=== PATIENT | female | born 1940 | race Caucasian/White ===

== ENCOUNTER 2017-10-04 15:46 | Emergency (ER) | payer OTHER ==
--- NOTE | 2017-10-04 16:11 | PDOC ---
Rapid Medical Evaluation Time Seen by Provider: 10/04/17 16:04 Medical Evaluation: 10/04/17 16:04 I have performed a brief in-person evaluation of this patient. The patient presents with a chief complaint of: L wrist pain and facial abrasion s/p mechanical fall today. No LOC, rice, dizziness, n/v. Not on blood thinners. No hip/neck/pain. Ambulatory in triage. No CP or dizziness prior to fall Pertinent physical exam findings:facial abrasion to L side of face, LUE w/ some swelling over dorsal aspect of distal L forearm I have ordered the following:CTH and xray The patient will proceed to the ED for further evaluation Discharge Disposition - Diagnosis Fall Qualifiers: Encounter type: initial encounter Qualified Code(s): W19.XXXA - Unspecified fall, initial encounter - Referrals - Patient Instructions - Post Discharge Activity
[2017-10-04 16:15] VITALS: BP 118/57; PULSE 86; TEMP 97.8; BMI 26.2
[2017-10-04] MEDS ORDERED: DIPHTH,PERTUSS(ACELL),TET 0.5 ML DISP.SYRIN IM ONE (16:40)
--- NOTE | 2017-10-04 16:40 | PDOC ---
History of Present Illness - General Chief Complaint: Bone Injury Stated Complaint: FALL, INJURY Time Seen by Provider: 10/04/17 16:04 History Source: Patient Exam Limitations: No Limitations - History of Present Illness Initial Comments: 10/04/17 16:35 76 yr female tripped and fell this am injured left wrist and left side face. no LOC no dizzyness. Occurred: reports: this morning Severity: reports: mild Pain Location: reports: upper extremity (left wrist) Method of Injury: Yes: fall Past History - Past Medical History Allergies/Adverse Reactions: Allergies Allergy/AdvReac Type Severity Reaction Status Date / Time No Known Allergies Allergy Verified 10/04/17 16:47 Home Medications: Ambulatory Orders Metoprolol Succinate 25 mg PO ASDIR 10/04/17 COPD: No HTN: Yes - Suicide/Smoking/Psychosocial Hx Smoking History: Former smoker Have you smoked in the past 12 months: No If you are a former smoker, when did you quit?: 8 years ago Information on smoking cessation initiated: No Hx Alcohol Use: No Drug/Substance Use Hx: No Review of Systems - Review of Systems Able to Perform ROS?: Yes Is the patient limited Bur[place]ian proficient: No Constitutional: No: Symptoms Reported HEENTM: No: Symptoms Reported Respiratory: No: Symptoms reported Cardiac (ROS): No: Symptoms Reported ABD/GI: No: Symptoms Reported Musculoskeletal: Yes: Symptoms Reported *Physical Exam - Vital Signs Last Vital Signs Temp Pulse Resp BP Pulse Ox 97.8 F 86 16 118/57 96 10/04/17 16:07 10/04/17 16:07 10/04/17 16:07 10/04/17 16:07 10/04/17 16:07 - Physical Exam General Appearance: Yes: Nourished, Appropriately Dressed HEENT: positive: EOMI, CONY, TMs Normal, Pharynx Normal Neck: positive: Supple. negative: Lymphadenopathy (R), Lymphadenopathy (L), Tender lateral Respiratory/Chest: positive: Lungs Clear, Normal Breath Sounds. negative: Chest Tender, Stridor, Wheezing Cardiovascular: positive: Regular Rhythm, Regular Rate Extremity: positive: Normal Capillary Refill, Normal Inspection, Tender, Swelling (left wrist stronf radial pulse limited ROM ) Integumentary: positive: Normal Color, Dry, Warm, Bruising, Other (abrasions left cheek, left upper eyeborw ) Procedures - Splinting Hand-Made Type: orthoglass (left wirst volar/dorsal splint placed above elbow) Medical Decision Making - Medical Decision Making 10/04/17 16:49 cc: mechanical fall on tree root on sidewalk this am no loc pt has applied ice to the left side of face cleaned with peroxide and appied bacitracin at home pt has pain 7/10 to the left wrist with minimal movement xrays done, head ct ordered, 10/04/17 18:08 ct done is negative dc inst given to pt who understands the plan of care all questions asked and answered. *DC/Admit/Observation/Transfer Diagnosis at time of Disposition: Abrasion, face w/o infection Fall Qualifiers: Encounter type: initial encounter Qualified Code(s): W19.XXXA - Unspecified fall, initial encounter Wrist fracture, left Qualifiers: Encounter type: initial encounter Fracture type: closed Qualified Code(s): S62.102A - Fracture of unspecified carpal bone, left wrist, initial encounter for closed fracture - Discharge Dispostion Disposition: HOME Condition at time of disposition: Good - Referrals Referrals: Ubaldo Fernandes MD [Staff Physician] - - Patient Instructions Additional Instructions: call 's office on Saturday for appointment next week do not remove the splint or get it wet use the sling while awake remove to sleep and bathe take tylenol 650mg every 4-6hrs for pain follow with your primary care doctor on SATURDAY - Post Discharge Activity
== END 2017-10-04 18:11 | disposition home or self-care (01) ==
LOC: JERFT 15:46
PROC: 2W3DX1Z Immobilization of Left Lower Arm using Splint (ICD-10-PCS; principal; 2017-10-04)
DX: S52.592A Other fractures of lower end of left radius, initial encounter for closed fracture (principal); S00.31XA Abrasion of nose, initial encounter; W18.39XA Other fall on same level, initial encounter; Y93.01 Activity, walking, marching and hiking; Y92.480 Sidewalk as the place of occurrence of the external cause; Y99.8 Other external cause status; I10 Essential (primary) hypertension
CPT/HCPCS: 29125; 70450-TC; 73090-TC-LT-FY; 73110-TC-LR-FY; 73130-TC-LR-FY; 90715; 99282-25

== ENCOUNTER 2018-12-04 11:47 | Observation (INO) | payer OTHER ==
[2018-12-04 11:53] VITALS: BMI 24.8
--- NOTE | 2018-12-04 12:03 | PDOC ---
History of Present Illness - General Chief Complaint: Shortness of Breath Stated Complaint: ASTHMA Time Seen by Provider: 12/04/18 12:00 History Source: Patient Exam Limitations: No Limitations - History of Present Illness Initial Comments: Sonia Taveras is an 78 yo F w a hx of COPD, HTN, HCL, and childhood asthma who presents to the ER with shortness of breath which has been worsening over the past month. The patient states it came to a point where she cannot breathe at rest. She has been experiencing significant dyspnea with exertion over the course of the past month. Whenever she walks one block she becomes short of breath and also has chest pain. She states she has been requiring an extra pillow to sleep with lately. Patient endorses a dry cough over the past week as well. The patient denies currently experiencing any chest pain. Her only complaint at the present time is difficulty breathing. Denies recent fevers, chills, infections. Denies ankle/leg swelling. Denies having a hx of heart failure. Denies nausea vomiting, diaphoresis. Denies current chest pain. Denies abdominal or back pain. PCP: Yeison Chu PSH: None reported Social Hx: [place] smoker. Denies current smoking, drinking, or substance abuse Allergies: NKDA, NKA Past History - Past Medical History Allergies/Adverse Reactions: Allergies Allergy/AdvReac Type Severity Reaction Status Date / Time No Known Allergies Allergy Verified 12/04/18 15:02 Home Medications: Ambulatory Orders Albuterol Sulfate [Proair Hfa] 8.5 gm IH Q6H PRN #1 hfa.aer.ad 12/04/18 Amlodipine Besylate [Norvasc -] 5 mg PO DAILY 12/04/18 Enalapril Maleate [Vasotec] 20 mg PO DAILY 12/04/18 Fluticasone/Vilanterol [Breo Ellipta 100-25 Mcg INH] 1 each IH DAILY #1 blst.w.dev 12/04/18 Metoprolol Succinate [Toprol Xl] 50 mg PO DAILY 12/04/18 Pravastatin Sodium 20 mg PO HS 12/04/18 Prednisone See Taper PO DAILY #20 tablet 12/04/18 Cancer: Yes COPD: No HTN: Yes - Immunization History Immunization Up to Date: Yes - Psycho Social/Smoking Cessation Hx Smoking History: Former smoker Have you smoked in the past 12 months: No If you are a former smoker, when did you quit?: 8 years ago Information on smoking cessation initiated: No Hx Alcohol Use: No Drug/Substance Use Hx: No Review of Systems - Review of Systems Able to Perform ROS?: Yes Comments:: CONSTITUTIONAL: Present: weakness, malaise Absent: fever, chills, diaphoresis, loss of appetite HEENT: Absent: rhinorrhea, nasal congestion, throat pain, throat swelling, difficulty swallowing, mouth swelling, ear pain, eye pain, visual Changes CARDIOVASCULAR: Present: Chest pain Absent: syncope, palpitations, irregular heart rate, lightheadedness, peripheral edema RESPIRATORY: Present: cough, shortness of breath, dyspnea with exertion, orthopnea Absent: wheezing, stridor, hemoptysis GASTROINTESTINAL: Absent: abdominal pain, abdominal distension, nausea, vomiting, diarrhea, constipation, melena, hematochezia GENITOURINARY: Absent: dysuria, frequency, urgency, hesitancy, hematuria, flank pain, genital pain MUSCULOSKELETAL: Absent: myalgia, arthralgia, joint swelling SKIN: Absent: rash, itching, pallor HEMATOLOGIC/IMMUNOLOGIC: Absent: easy bleeding, easy bruising, lymphadenopathy, frequent infections ENDOCRINE: Absent: unexplained weight gain, unexplained weight loss, heat intolerance, cold intolerance NEUROLOGIC: Absent: headache, focal weakness or paresthesias, dizziness, unsteady gait, seizure, mental status changes, bladder or bowel incontinence PSYCHIATRIC: Absent: anxiety, depression, suicidal or homicidal ideation, hallucinations. *Physical Exam - Vital Signs Last Vital Signs Temp Pulse Resp BP Pulse Ox 98.2 F 21 H 120/64 95 12/04/18 11:49 12/04/18 11:49 12/04/18 11:49 12/04/18 11:49 - Physical Exam Comments: GENERAL: Well developed, well nourished. Awake and alert. Mild distress. HEENT: Normocephalic, atraumatic. PERRLA, EOMI. No conjunctival pallor. Sclera are non- icteric. Moist mucous membranes. Oropharynx is clear. NECK: Supple. Full ROM. No JVD. No thyromegaly. No lymphadenopathy. CARDIOVASCULAR: Tachycardic rate. Regular rhythm. No murmurs, rubs, or gallops. Distal pulses are 2+ and symmetric. PULMONARY: There are bilateral crackles at the bases. No wheezing or rhonchi. ABDOMINAL: Soft. Non-tender. Non-distended. No rebound or guarding. No organomegaly. Normoactive bowel sounds. MUSCULOSKELETAL Normal range of motion at all joints. No bony deformities or tenderness. No CVA tenderness. EXTREMITIES: 1+ b/l edema. No cyanosis. No clubbing. No calf tenderness. SKIN: Warm and dry. Normal capillary refill. No rashes. No jaundice. NEUROLOGICAL: Alert, awake, appropriate. Normal speech. Gait is normal without ataxia. PSYCHIATRIC: Cooperative. Good eye contact. Appropriate mood and affect. Procedures - Bedside Ultrasound Bedside Ultrasound: Lung Other: Cardiac Remarks: Lungs: Trace B-lines in right apex. Normal A-lines in both lung henry. Normal lung sliding. No pleural effusion. Cardiac: No focal wall motion abnormalities, no pericardial effusion, normal LV/ RV ratio ED Treatment Course - LABORATORY CBC & Chemistry Diagram: 12/04/18 12:48 12/04/18 12:48 - RADIOLOGY Radiograph Interpretation: CXR: Chest: Wheezing. 2 views of the chest reveal clear lungs, sharp angles, tortuous thoracic aorta but no sign of infiltrate or failure. The angles are sharp. The bones and soft tissues are intact. There are degenerative changes with wedging. The mediastinum has a similar configuration to 05/08/2018. Correlation recommended Medical Decision Making - Medical Decision Making Sonia Taveras is an 78 yo F w a hx of COPD, HTN, HCL, and childhood asthma who presents to the ER with shortness of breath which has been worsening over the past month. The patient states it came to a point where she cannot breathe at rest. She has been experiencing significant dyspnea with exertion over the course of the past month. Whenever she walks one block she becomes short of breath and also has chest pain. She states she has been requiring an extra pillow to sleep with lately. Patient endorses a dry cough over the past week as well. The patient denies currently experiencing any chest pain. Her only complaint at the present time is difficulty breathing. VS: Patient is satting at 95% on RA - Tachycardic to 115 DDx IBNLT: COPD vs CHF, less likely asthma. ACS/MA, electrolyte/metabolic disturbance, angina Plan: Labs, urine, CXR, EKG, bedside POCUS heart, lung, admit to hospital EKG: NS rate of 89, narrow complexes, normal axis, no hypertrophy, no ST elevations or depressions, no Q waves, no abnormal TWI's Labs: Elevated BUN. Normal trop and BNP. - Hydrating w 1LNS US - Lungs: Trace B-lines on the left. Normal A-lines, no pleural effusion. Cardio: No focal wall motion abnormalities. No pericardial effusion. Normal Rv/ Lv ratio. Grossly Normal echo. CXR: Unremarkable Dispo: Admit to hospital for respiratory distress Discharge - Discharge Information Problems reviewed: Yes Clinical Impression/Diagnosis: COPD exacerbation COPD (chronic obstructive pulmonary disease) Qualifiers: COPD type: unspecified COPD Qualified Code(s): J44.9 - Chronic obstructive pulmonary disease, unspecified Condition: Stable - Admission Yes - Follow up/Referral - Patient Discharge Instructions - Post Discharge Activity
--- NOTE | 2018-12-04 12:34 | PDOC ---
Documentation entered by Maryjane Perez SCRIBE, acting as scribe for Ary Villa MD. Ary Villa MD: This documentation has been prepared by the Ana newton Adrianna, SCRIBE, under my direction and personally reviewed by me in its entirety. I confirm that the documentation accurately reflects all work, treatment, procedures, and medical decision making performed by me. Attending Attestation - Resident Resident Name: Doug Charles - ED Attending Attestation I have performed the following: I have examined & evaluated the patient, The case was reviewed & discussed with the resident, I agree w/resident's findings & plan - HPI HPI: The patient is an 78 year old female, with a significant PMH of HTN, COPD, HCL , and childhood asthma presenting with progressively worsening SOB for one month. Patient endorses dyspnea on exertion, noting she cant walk for more than one block. Patient notes she developed dyspnea at rest, prompting her visit to the ED. She reports associated dry cough and chest pain upon exertion. usually takes proair for COPD. 12/04/18 13:03 - Physicial Exam PE: Agree with the resident's HPI and PE as documented in the electronic medical record. NAD, well appearing, EOMI, PERRL, nl conjunctiva, anicteric; no jvd. neck supple. mildly tachypneic in 20s, +basilar crackles, diminished breath sounds throughout. tachycardic, no murmurs, abdomen soft nontender. Back nontender. CALERO x4, no focal neuro deficits. No peripheral edema. normal color for ethnicity , no calf tenderness. WWP. 12/04/18 13:02 - Medical Decision Making 12/04/18 12:32 See HPI for details. Prior notes reviewed, including admissions, discharges and consultations. Vital signs reviewed, wnl. Vital Signs Temp Pulse Resp BP Pulse Ox 98.2 F 21 H 120/64 95 12/04/18 11:49 12/04/18 11:49 12/04/18 11:49 12/04/18 11:49 DDx SOB: ACS, PE, PTX, CHF, COPD exac, pulmonary edema, pleurisy, pneumonia, viral syndrome. effusion. anemia, electrolyte/metabolic derangements. POCUS thoracic exam with primarily A line profile b/l, left focal B lines in the apex, unclear etiology, but not diffuse; no pleural effusions noted. suggestive of more copd exacerbation. laboratory results and imaging reviewed, basic labs and lytes wnl, CXR_copd lungs, no infiltrate/edema/effusion or opacity Cardiac panel_neg, reassuring, doubt cardiac. EKG normal sinus rhythm at 89 bpm, no interval abnormalities, narrow QRS, ST and T wave segments and morphology normal. ED course -interventions: duonebs x3, solumedrol, reassess Admit for COPD exacerbation.. Discussed results and management plan with pt and family member at bedside, agree with impression, treatment indications, recommendations and plan. hospitalist service for admission. 12/04/18 13:03 12/04/18 13:35 Heart Score/ECG Review #1 ECG reviewed & interpreted by me at: 11:55 General ECG Interpretation: Sinus Rhythm, Normal Rate, Normal Intervals Compared to previous ECG there are: Previous ECG unavail 12/04/18 12:34 EKG normal sinus rhythm at 89 bpm, no interval abnormalities, narrow QRS, ST and T wave segments and morphology normal.
[2018-12-04 13:00] LABS: BASO % 0.5 % (0-2.0); EOS % 2.9 % (0-4.5); HEMOGLOBIN 13.3 GM/dL (10.7-15.3); LYMPH % 14.8 % (8-40); MCHC 32.5 g/dl (32.0-36.0); MEAN PLT VOLUME 7.4 fl (7.5-11.1); MONO % 13.4 % (3.8-10.2); NEUT % 68.4 % (42.8-82.8); PLATELET COUNT 280 K/MM3 (134-434); RBC 4.76 M/mm3 (3.60-5.2); RDW 14.1 % (11.6-15.6); WHITE BLOOD COUNT 6.8 K/mm3 (4.0-10.0)
[2018-12-04 13:03] LABS: VENOUS PC02 39.2 mmHg (38-52); VENOUS PH 7.38 (7.31-7.41)
[2018-12-04 13:04] LABS: VENOUS PO2 < 49 mmHg (28-48)
[2018-12-04] MEDS ORDERED: methylPREDNISolone NA SUCC 125 MG/2 ML VIAL IVPUSH ONE (13:05)
[2018-12-04 13:15] LABS: INR 1.19 (0.83-1.09); PROTHROMBIN TIME (PATIENT) 14.1 SEC (9.7-13.0)
[2018-12-04 13:28] LABS: ALBUMIN 3.2 g/dl (3.4-5.0); BILIRUBIN,TOTAL 0.6 mg/dL (0.2-1); BLOOD UREA NITROGEN 22.9 mg/dL (7-18); CALCIUM 9.2 mg/dL (8.5-10.1); CREATININE 1.2 mg/dL (0.55-1.3); POTASSIUM 4.2 mmol/L (3.5-5.1); TOT PROT 7.8 g/dl (6.4-8.2)
[2018-12-04 13:31] LABS: N-TERMINAL BNP 332.4 pg/ml (5-450)
[2018-12-04] MEDS ORDERED: SODIUM CHLORIDE 0.9% 500 ML INFUS.BAG IV ONE (13:34)
[2018-12-04] MEDS: ALBUTEROL SO4 2.5/IPRATROPIUM 0.5 INH SOL 3 ML VIAL.NEB. NEB SCH ×2 (14:15→14:45)
[2018-12-04] MEDS ORDERED: methylPREDNISolone NA SUCC 125 MG/2 ML VIAL ONE (14:25)
[2018-12-04] MEDS ORDERED: ALBUTEROL SO4 2.5/IPRATROPIUM 0.5 INH SOL 3 ML VIAL.NEB. NEB ONE ×2 (14:25)
[2018-12-04] MEDS ORDERED: ALBUTEROL SO4 0.083% IH SOL 2.5 MG/3 ML VIAL.NEB. NEB PRN (15:06)
--- NOTE | 2018-12-04 16:11 | PN ---
Teaching Attending Note Name of Resident: Jamar Torrez ATTENDING PHYSICIAN STATEMENT I saw and evaluated the patient. I reviewed the resident's note and discussed the case with the resident. I agree with the resident's findings and plan as documented with exceptions below. SUBJECTIVE: 78 yof with PMHx of Ashthma, prior heavy smoker, COPD, (no prior h/o PNA/exac or hospitalization or need for home oxygen), HTN comes with progressive dyspnea with exertion, improved with rest. reports overall generalized chest tightness that improves with inhalers. Also c/o seasonal allergies. No fevers, chills, cough, sputum, sick contacts, chest pain, leg swelling, weight gain, orthopnea, PND or new concerns. Currently feels much better after receiving treatment in the ED and eager to go home. 12 point ROS done, neg except above. last seen her bail attacher Dr. Ramirez 1 year ago. OBJECTIVE: Vital Signs Period Temp Pulse Resp BP Sys/[place] Pulse Ox Last 24 Hr 98.2 F 21 120/64 95-96 Intake & Output 12/01/18 12/02/18 12/03/18 12/04/18 23:59 23:59 23:59 23:59 Weight 136 lb GENERAL: Awake, alert, and fully oriented, in no acute distress, able to talk in full sentences, no use of accessory muscles of respiration. No dyspnea or tachypnea noted after ambulation in the ED, oxygenating well. HEAD: Normal with no signs of trauma. EYES: Pupils equal, round and reactive to light, extraocular movements intact, sclera anicteric, conjunctiva clear. No lid lag. EARS, NOSE, THROAT: Ears normal, nares patent, oropharynx clear without exudates. Moist mucous membranes. NECK: Normal range of motion, supple without lymphadenopathy, JVD, or masses. LUNGS: Breath sounds equal, clear to auscultation bilaterally. No wheezes, few basilar rales. No accessory muscle use. HEART: Regular rate and rhythm, normal S1 and S2 without murmur, rub or gallop. ABDOMEN: Soft, nontender, not distended, normoactive bowel sounds, no guarding, no rebound, no masses. No hepatomegaly or splenomegaly. MUSCULOSKELETAL: Normal range of motion at all joints. No bony deformities or tenderness. No CVA tenderness. UPPER EXTREMITIES: 2+ pulses, warm, well-perfused. No cyanosis. No clubbing. No peripheral edema. LOWER EXTREMITIES: 2+ pulses, warm, well-perfused. No calf tenderness. No peripheral edema. NEUROLOGICAL: AAOX3, facial symmetry, tongue midline, EOMI, PERRL, power 5/5, sensation intact to light touch, Cranial nerves II-XII intact. Normal speech. Normal gait. PSYCHIATRIC: Cooperative. Good eye contact. Appropriate mood and affect. SKIN: Warm, dry, normal turgor, no rashes or lesions noted, normal capillary refill. Home Medications Medication Instructions Recorded Albuterol Sulfate [Proair Hfa] 8.5 gm IH Q6H PRN #1 hfa.aer.ad 12/04/18 Amlodipine Besylate [Norvasc -] 5 mg PO DAILY 12/04/18 Enalapril Maleate [Vasotec] 20 mg PO DAILY 12/04/18 Fluticasone/Vilanterol [Breo 1 each IH DAILY #1 blst.w.dev 12/04/18 Ellipta 100-25 Mcg INH] Metoprolol Succinate [Toprol Xl] 50 mg PO DAILY 12/04/18 Pravastatin Sodium 20 mg PO HS 12/04/18 Prednisone See Taper PO DAILY #20 tablet 12/04/18 Active Medications Albuterol Sulfate (Ventolin 0.083% Nebulizer Soln -) 1 amp NEB Q4H PRN PRN Reason: SHORT OF BREATH/WHEEZING Albuterol/Ipratropium (Duoneb -) 1 amp NEB RTID CLAIR Prednisone (Deltasone -) 40 mg PO DAILY [facility] Laboratory Results - last 24 hr 12/04/18 12/04/18 12/04/18 12:48 12:48 12:48 WBC 6.8 RBC 4.76 Hgb 13.3 Hct 41.0 MCV 86.0 MCH 28.0 MCHC 32.5 RDW 14.1 Plt Count 280 MPV 7.4 L Absolute Neuts (auto) 4.7 Neutrophils % 68.4 Lymphocytes % 14.8 Monocytes % 13.4 H Eosinophils % 2.9 Basophils % 0.5 Nucleated RBC % 0 PT with INR INR VBG pH POC VBG pCO2 POC VBG pO2 VBG HCO3 VBG O2 Sat (Lucho) VBG Base Excess Sodium 137 Potassium 4.2 Chloride 106 Carbon Dioxide 22 Anion Gap 9 BUN 22.9 H Creatinine 1.2 Est GFR (CKD-EPI)AfAm 49.43 Est GFR (CKD-EPI)NonAf 42.65 Random Glucose 100 Calcium 9.2 Magnesium 2.0 Total Bilirubin 0.6 AST 38 H ALT 23 Alkaline Phosphatase 96 Creatine Kinase 104 Troponin I < 0.02 B-Natriuretic Peptide 332.4 Total Protein 7.8 Albumin 3.2 L 12/04/18 12/04/18 12:48 12:48 WBC RBC Hgb Hct MCV MCH MCHC RDW Plt Count MPV Absolute Neuts (auto) Neutrophils % Lymphocytes % Monocytes % Eosinophils % Basophils % Nucleated RBC % PT with INR 14.10 H INR 1.19 H VBG pH 7.38 POC VBG pCO2 39.2 POC VBG pO2 < 49 H VBG HCO3 22.5 L VBG O2 Sat (Lucho) 66.4 L VBG Base Excess -1.9 Sodium Potassium Chloride Carbon Dioxide Anion Gap BUN Creatinine Est GFR (CKD-EPI)AfAm Est GFR (CKD-EPI)NonAf Random Glucose Calcium Magnesium Total Bilirubin AST ALT Alkaline Phosphatase Creatine Kinase Troponin I B-Natriuretic Peptide Total Protein Albumin CXR image and results reviewed Prior CT chest from 04/2018 reviewed EKG: NSR, PAC, no acute ST-T changes ASSESSMENT AND PLAN: 78 yof with PMHx of asthma, COPD, prior heavy smoker, HTN, lost to pulmonary follow up, comes with seasonal allergies and progressive exertional dyspnea/ wheezing -Exertional dyspnea, likely COPD exac+/- season allergies -HTN -Ex heavy smoker Plan Markedly improved after steroids and nebs in the ED. Currently asymptomatic. Oxygenating well, lung exam clear. No fevers, or s/s concerning for infection Imaging non concerning. Ambulating well in the ED renew home albuterol/breo-ellipta. Discussed with Dr. Ramirez, will place on short steroid taper. Patient counseled on outpatient pulmonary follow up and PCP In 1 week Presentation findings, improvement with nebs/steroids and overall presentation consistent with COPD rather than cardiac process. patient feels well, wishing to go home. d/c home with appropriate inhaler and steroid scripts Discussed with patient, ED Rn. Total time spent 55 min.
--- NOTE | 2018-12-04 16:11 | HP ---
CHIEF COMPLAINT: Shortness of breath PCP: Dr. Chu HISTORY OF PRESENT ILLNESS: 78 yo F with h/o of COPD (unknown GOLD stage), HTN, HLD who originally presented due to increased shortness of breath. Pt describes increased shortness of breath over the past 1-2 months. Her reason for ER visit today was due to waking up short of breath which caused her concern. She noticed how her daily activities are becoming somewhat limited such as going to the grocery store. In addition she notices how climbing one stair flight or walking one block will get her short of breath. She has seen Dr. Ramirez 1 year prior for her pulmonology needs, however has not followed up because she didn't want to. Pt normally takes ProAir HFA PRN for shortness of breath, however she has been using it about 1-2 times per day and noticing diminishing returns. She has just run out of her ProAir within the past day or so as well. Pt also is supposed to be on Breo-Elipta, however pt again has ran out of her medications and not followed up with any doctors. Pt noted interrupted sleep and uses 2 pillows when she is in bed as well. Pt notes clear productive cough however this is infrequent. Pt also reports seasonal allergies around now, has not been in contact with any ill people, and has not received the flu vaccination this year. Currently pt received Medrol 125mg x1 in the ED which she reports has made her feel better. She denies any lightheadedness, dizziness, blurred vision, headaches, rhinorrhea, change in frequency or colour of sputum, odynophagia, chest pain, palpitations, back pain, abdominal pain, dysuria, polyuria, hematuria, diarrhea, constipation, melena, weakness, numbness. Recent Travel: Denies PAST MEDICAL HISTORY: COPD (Unknown GOLD due to unknown PFTs) HTN HLD PAST SURGICAL HISTORY: None Social History: Smoking: former smoker from [age]yo about 1PPD Alcohol: Denies Drugs: Denies Retired, has a pet cockatiel (bird) at home, no environmental exposures noted Allergies No Known Allergies Allergy (Verified 12/04/18 15:02) Family Hx: Noncontributory HOME MEDICATIONS: Home Medications Medication Instructions Recorded Albuterol Sulfate [Proair Hfa] 8.5 gm IH Q6H PRN #1 hfa.aer.ad 12/04/18 Amlodipine Besylate [Norvasc -] 5 mg PO DAILY 12/04/18 Enalapril Maleate [Vasotec] 20 mg PO DAILY 12/04/18 Fluticasone/Vilanterol [Breo 1 each IH DAILY #1 blst.w.dev 12/04/18 Ellipta 100-25 Mcg INH] Metoprolol Succinate [Toprol Xl] 50 mg PO DAILY 12/04/18 Pravastatin Sodium 20 mg PO HS 12/04/18 Prednisone See Taper PO DAILY #20 tablet 12/04/18 REVIEW OF SYSTEMS As per HPI PHYSICAL EXAMINATION Vital Signs - 24 hr 12/04/18 12/04/18 11:49 14:15 Temperature 98.2 F Respiratory 16 Rate Blood Pressure 120/64 O2 Sat by Pulse 95 96 Oximetry (%) GENERAL: Awake, alert, and fully oriented, in no acute distress. Able to speak in full sentences on RA HEENT: NC/AT, EOMI, JAVID, sclera anicteric, MMM, no nasal polyps NECK: No JVD LUNGS: CTA bilaterally including down to bases. Breathing at normal rate. No wheezes, and no crackles. No accessory muscle use. 93% SpO2 on RA. Ambulated with shortness of breath in ED HEART: RRR, normal S1 and S2 without murmur ABDOMEN: Soft, NT/ND, normoactive bowel sounds, no guarding MUSCULOSKELETAL: No CVA tenderness. EXTREMITIES: 2+ pulses, warm, well-perfused. No calf tenderness. No peripheral edema. No clubbing. No cyanosis PSYCHIATRIC: Cooperative. Good eye contact. Appropriate mood and affect. SKIN: Warm, dry, no rashes or lesions noted Laboratory Results 12/04/18 12/04/18 12/04/18 12:48 12:48 12:48 WBC 6.8 RBC 4.76 Hgb 13.3 Hct 41.0 MCV 86.0 MCH 28.0 MCHC 32.5 RDW 14.1 Plt Count 280 MPV 7.4 L Absolute Neuts (auto) 4.7 Neutrophils % 68.4 Lymphocytes % 14.8 Monocytes % 13.4 H Eosinophils % 2.9 Basophils % 0.5 Nucleated RBC % 0 PT with INR INR VBG pH POC VBG pCO2 POC VBG pO2 VBG HCO3 VBG O2 Sat (Lucho) VBG Base Excess Sodium 137 Potassium 4.2 Chloride 106 Carbon Dioxide 22 Anion Gap 9 BUN 22.9 H Creatinine 1.2 Est GFR (CKD-EPI)AfAm 49.43 Est GFR (CKD-EPI)NonAf 42.65 Random Glucose 100 Calcium 9.2 Magnesium 2.0 Total Bilirubin 0.6 AST 38 H ALT 23 Alkaline Phosphatase 96 Creatine Kinase 104 Troponin I < 0.02 B-Natriuretic Peptide 332.4 Total Protein 7.8 Albumin 3.2 L 12/04/18 12/04/18 12:48 12:48 WBC RBC Hgb Hct MCV MCH MCHC RDW Plt Count MPV Absolute Neuts (auto) Neutrophils % Lymphocytes % Monocytes % Eosinophils % Basophils % Nucleated RBC % PT with INR 14.10 H INR 1.19 H VBG pH 7.38 POC VBG pCO2 39.2 POC VBG pO2 < 49 H VBG HCO3 22.5 L VBG O2 Sat (Lucho) 66.4 L VBG Base Excess -1.9 Sodium Potassium Chloride Carbon Dioxide Anion Gap BUN Creatinine Est GFR (CKD-EPI)AfAm Est GFR (CKD-EPI)NonAf Random Glucose Calcium Magnesium Total Bilirubin AST ALT Alkaline Phosphatase Creatine Kinase Troponin I B-Natriuretic Peptide Total Protein Albumin ASSESSMENT/PLAN: Chronic COPD with advancement of disease HTN Former smoker HLD --CAT score of 19, however only worsened by 2 points since prior months as described by patient --Unknown PFTs for GOLD criteria --Pt markedly improved exam after ED interventions --CXR reviewed without any infiltrative processes or congestion noted; only hyperinflated lungs --No fevers, WBC WNL, no respiratory acidosis --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 Velásquez and Dr. Ramirez and ED physicians Jamar Torrez, DO - IM PGY-3 Visit type - Emergency Visit Emergency Visit: Yes ED Registration Date: 12/04/18 Care time: The patient presented to the Emergency Department on the above date and was hospitalized for further evaluation of their emergent condition. - New Patient This patient is new to me today: Yes Date on this admission: 12/04/18 - Critical Care Critical Care patient: No
--- NOTE | 2018-12-04 16:11 | DS ---
Physical Exam: SUBJECTIVE: SEE H&P subjective. Pt wishing to go home and feels comfortable to do so. OBJECTIVE: Vital Signs Period Temp Pulse Resp BP Sys/Aguayo Pulse Ox Last 24 Hr 98.2 F 21 120/64 95-96 PHYSICAL EXAM GENERAL: Awake, alert, and fully oriented, in no acute distress. Able to speak in full sentences on RA HEENT: NC/AT, EOMI, JAVID, sclera anicteric, MMM, no nasal polyps NECK: No JVD LUNGS: CTA bilaterally including down to bases. Breathing at normal rate. No wheezes, and no crackles. No accessory muscle use. 93% SpO2 on RA. Ambulated with shortness of breath in ED HEART: RRR, normal S1 and S2 without murmur ABDOMEN: Soft, NT/ND, normoactive bowel sounds, no guarding MUSCULOSKELETAL: No CVA tenderness. EXTREMITIES: 2+ pulses, warm, well-perfused. No calf tenderness. No peripheral edema. No clubbing. No cyanosis PSYCHIATRIC: Cooperative. Good eye contact. Appropriate mood and affect. SKIN: Warm, dry, no rashes or lesions noted LABS Laboratory Results - last 24 hr 12/04/18 12/04/18 12/04/18 12:48 12:48 12:48 WBC 6.8 RBC 4.76 Hgb 13.3 Hct 41.0 MCV 86.0 MCH 28.0 MCHC 32.5 RDW 14.1 Plt Count 280 MPV 7.4 L Absolute Neuts (auto) 4.7 Neutrophils % 68.4 Lymphocytes % 14.8 Monocytes % 13.4 H Eosinophils % 2.9 Basophils % 0.5 Nucleated RBC % 0 PT with INR INR VBG pH POC VBG pCO2 POC VBG pO2 VBG HCO3 VBG O2 Sat (Lucho) VBG Base Excess Sodium 137 Potassium 4.2 Chloride 106 Carbon Dioxide 22 Anion Gap 9 BUN 22.9 H Creatinine 1.2 Est GFR (CKD-EPI)AfAm 49.43 Est GFR (CKD-EPI)NonAf 42.65 Random Glucose 100 Calcium 9.2 Magnesium 2.0 Total Bilirubin 0.6 AST 38 H ALT 23 Alkaline Phosphatase 96 Creatine Kinase 104 Troponin I < 0.02 B-Natriuretic Peptide 332.4 Total Protein 7.8 Albumin 3.2 L 12/04/18 12/04/18 12:48 12:48 WBC RBC Hgb Hct MCV MCH MCHC RDW Plt Count MPV Absolute Neuts (auto) Neutrophils % Lymphocytes % Monocytes % Eosinophils % Basophils % Nucleated RBC % PT with INR 14.10 H INR 1.19 H VBG pH 7.38 POC VBG pCO2 39.2 POC VBG pO2 < 49 H VBG HCO3 22.5 L VBG O2 Sat (Lucho) 66.4 L VBG Base Excess -1.9 Sodium Potassium Chloride Carbon Dioxide Anion Gap BUN Creatinine Est GFR (CKD-EPI)AfAm Est GFR (CKD-EPI)NonAf Random Glucose Calcium Magnesium Total Bilirubin AST ALT Alkaline Phosphatase Creatine Kinase Troponin I B-Natriuretic Peptide Total Protein Albumin IMAGING: CXR: 2 views of the chest reveal clear lungs, sharp angles, tortuous thoracic aorta but no sign of infiltrate or failure. The angles are sharp. The bones and soft tissues are intact. There are degenerative changes with wedging. The mediastinum has a similar configuration to 2018. Correlation recommended ECG: [QTc 493ms] POOR DATA QUALITY, INTERPRETATION MAY BE ADVERSELY AFFECTED SINUS RHYTHM WITH PREMATURE ATRIAL COMPLEXES OTHERWISE NORMAL ECG WHEN COMPARED WITH ECG OF 03-MAR-2009 20:57, PREMATURE VENTRICULAR COMPLEXES ARE NO LONGER PRESENT PREMATURE ATRIAL COMPLEXES ARE NOW PRESENT HOSPITAL COURSE: Date of Admission:12/04/18 Date of Discharge: 12/04/18 Short-term stay due to interval improvement from original assessment until now. 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 Velásquez and Dr. Ramirez and ED physicians Jamar Torrez, DO - IM PGY-3 Minutes to complete discharge: 30 Discharge Summary Problems reviewed: Yes Reason For Visit: ACUTE EXACERBATION OF COPD Current Active Problems COPD (chronic obstructive pulmonary disease) (Acute) COPD exacerbation (Acute) Condition: Stable - Instructions Diet, Activity, Other Instructions: You were seen due to have increased shortness of breath related to your COPD. It is important to go to your follow-up appointments so you can be optimized with medications to feel better MEDICATIONS: Please continue your Breo Elipta 1 inhalation per day (this was sent to your pharmacy) please continue your ProAir NEEDED for shortness of breath 1-2 puffs every 4 hours Please continue your Enalapril 20mg daily Continue your Metoprolol 50mg daily Continue your Amlodipine 5mg daily Continue your Pravastatin 20mg at night You will be given a Prednisone taper. It is important to continue this to the end as stopping it abruptly could harm you. --First day: 4 tablets (40mg) once --Second day: 4 tablets (40mg) once --Third day: 3 tablets (30mg) once --Fourth day: 3 tablets (30mg) once --Fifth day: 2 tablets (20mg) once --Sixth day: 2 tablets (20mg) once --Seventh day: 1 tablet (10mg) once -- day: 1 tablets (10mg) once --Stop on the ninth day-- Follow-ups: Please follow-up with Dr. Chu in 1 week to update him on your condition Please follow-up with Dr. Ramirez within 1 week to update your pulmonary function tests and medications regarding your COPD If you notice any fevers, chills, new cough with productive cough, chest pain, worsening breathing or any new concerns, please call 911 or come to the ED. Referrals: Victor M Chu MD [Primary Care Provider] - 1 Week José Miguel Ramirez MD [Staff Physician] - 1 Week Disposition: HOME - Home Medications Comprehensive Discharge Medication List: Ambulatory Orders Albuterol Sulfate [Proair Hfa] 8.5 gm IH Q6H PRN #1 hfa.aer.ad 12/04/18 Amlodipine Besylate [Norvasc -] 5 mg PO DAILY 12/04/18 Enalapril Maleate [Vasotec] 20 mg PO DAILY 12/04/18 Fluticasone/Vilanterol [Breo Ellipta 100-25 Mcg INH] 1 each IH DAILY #1 blst.w.dev 12/04/18 Metoprolol Succinate [Toprol Xl] 50 mg PO DAILY 12/04/18 Pravastatin Sodium 20 mg PO HS 12/04/18 Prednisone See Taper PO DAILY #20 tablet 12/04/18 This patient is new to me today: Yes Date on this admission: 12/04/18 Emergency Visit: Yes ED Registration Date: 12/04/18 Care time: The patient presented to the Emergency Department on the above date and was hospitalized for further evaluation of their emergent condition. Critical Care patient: No - Discharge Referral Referred to [facility] No
--- NOTE | 2018-12-04 16:19 | EKG ---
Test Reason : Blood Pressure : / mmHG Vent. Rate : 089 BPM Atrial Rate : 089 BPM P-R Int : 194 ms QRS Dur : 090 ms QT Int : 406 ms P-R-T Axes : 091 -23 066 degrees QTc Int : 493 ms POOR DATA QUALITY, INTERPRETATION MAY BE ADVERSELY AFFECTED SINUS RHYTHM WITH PREMATURE ATRIAL COMPLEXES OTHERWISE NORMAL ECG WHEN COMPARED WITH ECG OF 03-MAR-2009 20:57, PREMATURE VENTRICULAR COMPLEXES ARE NO LONGER PRESENT PREMATURE ATRIAL COMPLEXES ARE NOW PRESENT Confirmed by JAVIER ERAZO MD ([id number]) on 12/04/2018 4:19:40 PM Referred By: Confirmed By:JAVIER ERAZO MD
[2018-12-04 16:26] VITALS: BP 119/55; PULSE 78; TEMP 98.3
[2018-12-04] MEDS ORDERED: ALBUTEROL SO4 2.5/IPRATROPIUM 0.5 INH SOL 3 ML VIAL.NEB. NEB SCH (20:00)
[2018-12-05] MEDS ORDERED: predniSONE 20 MG TABLET (UD) PO SCH (10:00)
== END 2018-12-04 16:32 | disposition home or self-care (01) ==
LOC: JER 11:47 → UNDOADMOB 13:45 → JERBED 13:45 → INTOOBSV 13:45 → JERBED 15:05
PROVIDERS: ADMIT Hospitalist; ATTEND Hospitalist
PROC: 3E033NZ Introduction of Analgesics, Hypnotics, Sedatives into Peripheral Vein, Percutaneous Approach (ICD-10-PCS; principal; 2018-12-04)
PROC: 3E0337Z Introduction of Electrolytic and Water Balance Substance into Peripheral Vein, Percutaneous Approach (ICD-10-PCS; 2018-12-04)
PROC: 3E0F7GC Introduction of Other Therapeutic Substance into Respiratory Tract, Via Natural or Artificial Opening (ICD-10-PCS; 2018-12-04)
DX: J44.1 Chronic obstructive pulmonary disease with (acute) exacerbation (principal); I10 Essential (primary) hypertension; E78.5 Hyperlipidemia, unspecified; Z87.891 Personal history of nicotine dependence
CPT/HCPCS: 36415; 71046-TC-FY; 80053; 82550; 82803; 83735; 83880; 84484; 85025; 85610; 93005; 93010; 94640; 96374; 99283-25; G0378

== ENCOUNTER 2020-12-20 04:38 | Day surgery (SDC) | payer OTHER ==
[2020-12-16 14:17] VITALS: BMI 25.3
[~2020-12-20 04:38] MED LIST: BSS (NA/CA/MG/K) BALANCED SALT SOLUTION OPHTH SOLN 15 ML BOTTLE IO ONE; CHONDROITIN SU A/HYALUR SOD 1 KIT IO ONE; EPINEPHrine/PF 1 MG/1 ML (1:1,000) AMPULE SQ ONE; LIDOCAINE HCL 1% PRESERVATIVE FREE - 30ML VIAL IO ONE; LIDOCAINE HCL 4% PRESERVE-FREE 5 ML AMP TP ONE; POVIDONE-IODINE 5% OPHTHALMIC PREP 30 ML SOLUTION OS ONE
[2020-12-20] MEDS ORDERED: PHENYLEPHRINE 2.5% OPHTH SOLN 15 ML BOTTLE OP SCH (07:00)
[2020-12-20] MEDS ORDERED: LIDOCAINE HCL/PF 1% SDV 5ML VIAL ONE (07:43)
[2020-12-20] MEDS ORDERED: EPINEPHrine/PF 1 MG/1 ML (1:1,000) AMPULE ONE (07:43)
[2020-12-20] MEDS ORDERED: LIDOCAINE HCL 4% PRESERVE-FREE 5 ML AMP ONE (07:43)
[2020-12-20] MEDS ORDERED: POVIDONE-IODINE 5% OPHTHALMIC PREP 30 ML SOLUTION ONE (07:44)
[2020-12-20] MEDS ORDERED: CIPROFLOXACIN 0.3% EYE DROPS 5 ML BOTTLE ONE (07:52)
[2020-12-20] MEDS ORDERED: FLURBIPROFEN 0.03% OPHTH SOLN 2.5 ML BOTTLE ONE (07:53)
[2020-12-20] MEDS ORDERED: TROPICAMIDE 1% OPHTH SOLN 15 ML BOTTLE ONE (07:53)
[2020-12-20] MEDS ORDERED: CYCLOPENTOLATE HCL 1% OPHTH SOLN 2 ML BOTTLE ONE (07:53)
[2020-12-20] MEDS: FLURBIPROFEN 0.03% OPHTH SOLN 2.5 ML BOTTLE OP SCH ×2 (08:34→08:48)
[2020-12-20] MEDS: CYCLOPENTOLATE HCL 1% OPHTH SOLN 2 ML BOTTLE OP SCH ×2 (08:34→08:48)
[2020-12-20] MEDS: CIPROFLOXACIN HCL 0.3% OPHTH 2.5ML BOTTLE OP SCH ×2 (08:34→08:48)
[2020-12-20] MEDS: TROPICAMIDE 1% OPHTH SOLN 15 ML BOTTLE OP SCH ×2 (08:35→08:49)
[2020-12-20] MEDS: PHENYLEPHRINE 2.5% OPTHALMIC DROP BOTTLE ONE ×2 (08:35→08:48)
[2020-12-20] MEDS ORDERED: MIDAZOLAM HCL 2 MG/2 ML SINGLE DOSE VIAL ONE (10:27)
[2020-12-20] MEDS ORDERED: LIDOCAINE HCL 4% PRESERVE-FREE 5 ML AMP TP ONE (10:52)
[2020-12-20] MEDS ORDERED: POVIDONE-IODINE 5% OPHTHALMIC PREP 30 ML SOLUTION OS ONE (10:53)
[2020-12-20] MEDS ORDERED: BSS (NA/CA/MG/K) BALANCED SALT SOLUTION OPHTH SOLN 15 ML BOTTLE IO ONE (10:57)
[2020-12-20] MEDS ORDERED: LIDOCAINE HCL 1% PRESERVATIVE FREE - 30ML VIAL IO ONE (11:00)
[2020-12-20] MEDS ORDERED: CHONDROITIN SU A/HYALUR SOD 1 KIT IO ONE (11:01)
[2020-12-20] MEDS ORDERED: EPINEPHrine/PF 1 MG/1 ML (1:1,000) AMPULE SQ ONE (11:02)
[2020-12-20 12:57] VITALS: TEMP 98.8
[2020-12-20 13:09] VITALS: BP 150/80; PULSE 88
== END 2020-12-20 12:15 | disposition home or self-care (01) ==
LOC: JASU-SURG 04:38
PROVIDERS: ATTEND Ophthalmology
PROC: 08RK3JZ Replacement of Left Lens with Synthetic Substitute, Percutaneous Approach (ICD-10-PCS; principal; 2020-12-20 10:00)
DX: H26.9 Unspecified cataract (principal)